=== PATIENT | male | born 2000 | race Hispanic/Latino ===

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

== ENCOUNTER 2019-12-22 13:44 | Emergency (ER) | payer MEDICAID, OTHER | END 2019-12-22 14:44 | disposition home or self-care (01) | LOC: EDH 13:44 | DX: L03.012 Cellulitis of left finger (principal); Z91.030 Bee allergy status ==

== ENCOUNTER 2019-12-30 14:14 | Emergency (ER) | payer SELFPAY | END 2019-12-30 14:42 | disposition home or self-care (01) | LOC: EDH 14:14 | DX: S29.012A Strain of muscle and tendon of back wall of thorax, initial encounter (principal); Z91.030 Bee allergy status; X50.0XXA Overexertion from strenuous movement or load, initial encounter; Y93.89 Activity, other specified; Y92.89 Other specified places as the place of occurrence of the external cause; Y99.8 Other external cause status | CPT/HCPCS: 99281 ==

== ENCOUNTER 2021-06-02 19:00 | Emergency (ER) | payer SELFPAY ==
[~2021-06-02] VITALS: Ht 165.1 cm; Wt 88.5 kg
[2021-06-02 21:36] VITALS: BP 156/87
[2021-06-02] MEDS ORDERED: ACETAMINOPHEN 500 MG TABLET PO ONE (22:00)
[2021-06-02] MEDS ORDERED: AMOX/CLAV 500/125MG TAB PO ONE (22:00)
[2021-06-02] MEDS ORDERED: NEOMYCIN/POLYMYXIN/HC OTIC SUSP 10ML BOTTLE AD SCH (22:00)
[2021-06-02] MEDS ORDERED: IBUPROFEN 600 MG TABLET PO ONE (22:00)
[2021-06-02] MEDS ORDERED: CORTSOL AD (22:07)
[2021-06-02] MEDS ORDERED: AMOX-429 PO (22:07)
[2021-06-02 22:10] VITALS: BP 134/81
== END 2021-06-02 22:14 | disposition home or self-care (01) ==
LOC: EDH 19:19
DX: H60.91 Unspecified otitis externa, right ear (principal); H66.91 Otitis media, unspecified, right ear; M54.2 Cervicalgia; Z79.1 Long term (current) use of non-steroidal anti-inflammatories (NSAID)